=== PATIENT | male | born 1955 | race Caucasian/White ===

== ENCOUNTER → 2017-12-31 | Outpatient (CLI) | payer OTHER ==
[~2017-12-31] MED LIST: ALLOPURINOL300 MG PO; AZO CRANBERRY1 EACH PO; FENOFIBRATE145 MG PO; GLYCERIN1 EAC1 PR; METFORMIN HCL500 M2 PO; OXYBUTYNIN CHLOR5 MG PO; TYLENOL WITH C1 EACH PO; ZETIA10 MG PO
--- NOTE | 2017-12-31 15:24 | Diagnostic Imaging Report ---
Exam: Abdominal radiograph History: Calculus Comparison: None. Findings: Nonobstructive bowel gas pattern. 3 mm left renal calculus. Right renal shadow unremarkable. Impression: 3 mm left renal calculus Signed by: Dr. Flo Dyer M.D. on 12/31/2017 3:21 PM
== END ==
LOC: RAD 14:19
PROVIDERS: ATTEND Urology
DX: N20.0 Calculus of kidney (principal)
CPT/HCPCS: 74018

== ENCOUNTER → 2018-05-20 | Outpatient (CLI) | payer OTHER ==
--- NOTE | 2018-05-20 17:49 | Diagnostic Imaging Report ---
EXAM: Complete Abdominal Ultrasound INDICATION: ^CYST OF KIDNEY/INCOMPETE EMPTYING/BLADDER CA COMPARISON: CT abdomen and pelvis 07/08/2016 TECHNIQUE: Transverse and longitudinal images of the upper abdomen were obtained. FINDINGS: Liver: Size: 17.7 cm in the right midclavicular line, enlarged Appearance: Increased echogenicity, smooth contour Mass: No focal masses Spleen: Size: 12.4 cm in length, borderline enlarged Echogenicity: Normal Mass: No focal masses Gallbladder: Stones/Sludge: 0.4 and 0.5 cm echogenic nonshadowing nonmobile foci are noted in the gallbladder wall, consistent with small polyps. No echogenic stones or sludge. Wall: 0.2 cm Appearance: No wall thickening, pericholecystic fluid or hydrops. Sonographic Bautista's Sign: Negative Bile Ducts: Intrahepatic Ducts: No dilatation Extrahepatic Ducts: Common bile duct measures 0.5 cm, no dilatation Pancreas: Visualized portions of the neck and proximal body are unremarkable. Kidneys: See renal ultrasound performed same day for further detail Vessels: Aorta: Visualized portions are normal Inferior Vena Cava: Visualized portions are normal Main Portal Vein: 1.3 cm, normal size with hepatopetal flow. Free Fluid: No ascites or pleural effusion IMPRESSION: 1. Hepatomegaly with diffuse fatty infiltration. No focal lesions. 2. Borderline hepatomegaly. 3. Subcentimeter gallbladder polyps. Recommend follow-up right upper quadrant ultrasound in 6-12 months to document stability. 4. Please refer to renal ultrasound from same date for description of renal findings. Signed by: Dr. Darnell Adams M.D. on 05/20/2018 5:46 PM
--- NOTE | 2018-05-20 17:53 | Diagnostic Imaging Report ---
EXAM: Renal Ultrasound INDICATION: ^[id number] ^1523 ^CYST OF KIDNEY/INCOMPETE EMPTYING/BLADDER CA COMPARISON: CT abdomen and pelvis 07/08/2016 TECHNIQUE: Transverse and longitudinal images of the kidneys and bladder were obtained. FINDINGS: Right Kidney: Size: 13.7 cm, right renal cortex 2.1 cm. Appearance: Normal echogenicity. Collecting system: No hydronephrosis Stones: None Cyst/Mass: None Left Kidney: Size: 9.7 cm, left renal cortex 1.7 cm. Appearance: Normal echogenicity. Collecting system: No hydronephrosis Stones: 0.5 cm echogenic focus in the left inferior pole, likely representing a small nonobstructing calculus. Cyst/Mass: 3.0 x 2.7 x 2.3 cm cystic, anechoic, partially exophytic cyst in the superior pole Bladder: Not well visualized and obscured by overlying gas. IMPRESSION: 1. Stable discrepancy in renal size, which may reflect right renal hypertrophy. No hydronephrosis or evidence of obstruction. 2. 0.5 cm nonobstructing left inferior pole renal calculus. 3. 3.0 cm simple cyst in the left superior pole Signed by: Dr. Darnell Adams M.D. on 05/20/2018 5:50 PM
== END ==
LOC: US 14:07
PROVIDERS: ATTEND Urology
DX: N28.1 Cyst of kidney, acquired (principal)
CPT/HCPCS: 76700; 76770

== ENCOUNTER 2019-06-02 13:07 | Emergency (ER) | payer OTHER, MEDICARE ==
[~2019-06-02] VITALS: Ht 190.5 cm; Wt 103.4 kg
--- OUTSIDE RECORDS SUMMARY | 2019-06-02 13:10 | XMS REPORT ---
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 Allergies, Adverse Reactions, Alerts This patient has no known allergies or adverse reactions. Medications This patient has no known medications. Results Test Description Test Time Test Comments Text Results Atomic Results Result Comments US RENAL RETROPERITONEAL COMP 2018-05-20 17:45:00 [place] [address] Patient Name: KEYUR REVELES MR #: [id number] : 1955 Age/Sex: 62/M Req #: [id number] Adm Physician: Ordered by: TIKI REEVES MD Report #: [id number] Location: US Room/Bed: Procedure: [id number] US/US RENAL RETROPERITONEAL COMP Exam Date: 05/20/18 Exam Time: 1523 REPORT STATUS: Signed EXAM: Renal Ultrasound INDICATION: [id number] CYST OF KIDNEY/INCOMPETE EMPTYING/BLADDER CA COMPARISON: CT abdomen and pelvis 07/08/2016 TECHNIQUE: Transverse and longitudinal images of the kidneys and bladder were obtained. FINDINGS: Right Kidney: Size: 13.7 cm, right renal cortex 2.1 cm. Appearance: Normal echogenicity. Collecting system: No hydronephrosis Stones: None Cyst/Mass: None Left Kidney: Size: 9.7 cm, left renal cortex 1.7 cm. Appearance: Normal echogenicity. Collecting system: No hydronephrosis Stones: 0.5 cm echogenic focus in the left inferior pole, likely representing a small nonobstructing calculus. Cyst/Mass: 3.0 x 2.7 x 2.3 cm cystic, anechoic, partially exophytic cyst in the superior pole Bladder: Not well visualized and obscured by overlying gas. IMPRESSION: 1. Stable discrepancy in renal size, which may reflect right renal hypertrophy. No hydronephrosis or evidence of obstruction. 2. 0.5 cm nonobstructing left inferior pole renal calculus. 3. 3.0 cm simple cyst in the left superior pole Signed by: Dr. Anam Adams M.D. on 05/20/2018 5:50 PM Dictated By: ANAM ADAMS MD 49 Transcribed By: VIJI on 05/20/181749 COPY TO: TIKI REEVES MD US ABDOMEN COMPLETE 2018-05-20 17:12:00 [place] [address] Patient Name: KEYUR REVELES MR #: [id number] : 1955 Age/Sex: 62/M Req #: [id number] Adm Physician: Ordered by: TIKI REEVES MD Report #: [id number] Location: Room/Bed: Procedure: [id number] US/US ABDOMEN COMPLETE Exam Date: 05/20/18 Exam Time: 1549 REPORT STATUS: Signed EXAM: Complete Abdominal Ultrasound INDICATION: CYST OF KIDNEY/INCOMPETE EMPTYING/BLADDER CA COMPARISON: CT abdomen and pelvis 07/08/2016 TECHNIQUE: Transverse and longitudinal images of the upper abdomen were obtained. FINDINGS: Liver: Size: 17.7 cm in the right midclavicular line, enlarged Appearance: Increased echogenicity, smooth contour Mass: No focal masses Spleen: Size: 12.4 cm in length, borderline enlarged Echogenicity: Normal Mass: No focal masses Gallbladder: Stones/Sludge: 0.4 and 0.5 cm echogenic nonshadowing nonmobile foci are noted in the gallbladder wall, consistent with small polyps. No echogenic stones or sludge. Wall: 0.2 cm Appearance: No wall thickening, pericholecystic fluid or hydrops. Sonographic Bautista's Sign: Negative Bile Ducts: Intrahepatic Ducts: No dilatation Extrahepatic Ducts: Common bile duct measures 0.5 cm, no dilatation Pancreas: Visualized portions of the neck and proximal body are unremarkable. Kidneys: See renal ultrasound performed same day for further detail Vessels: Aorta: Visualized portions are normal Inferior Vena Cava: Visualized portions are normal Main Portal Vein: 1.3 cm, normal size with hepatopetal flow. Free Fluid: No ascites or pleural effusion IMPRESSION: 1. Hepatomegaly with diffuse fatty infiltration. No focal lesions. 2. Borderline hepatomegaly. 3. Subcentimeter gallbladder polyps. Recommend follow-up right upper quadrant ultrasound in 6-12 months to document stability. 4. Please refer to renal ultrasound from same date for description of renal findings. Signed by: Dr. Anam Adams M.D. on 05/20/2018 5:46 PM Dictated By: ANAM ADAMS MD 45 Transcribed By: VIJI on 05/20/181745 COPY TO: TIKI REEVES MD ABDOMEN-1VIEW (KUB) 2017-12-31 15:19:00 [place] [address] Patient Name: KEYUR REVELES MR #: [id number] : 1955 Age/Sex: 62/M Req #: [id number] Adm Physician: Ordered by: TIKI REEVES MD Report #: [id number] Location: [facility] Room/Bed: Procedure: [id number] DX/ABDOMEN-1VIEW (KUB) Exam Date: Exam Time: REPORT STATUS: Signed Exam: Abdominal radiograph History: Calculus Comparison: None. Findings: Nonobstructive bowel gas pattern. 3 mm left renal calculus. Right renal shadow unremarkable. Impression: 3 mm left renal calculus Signed by: Dr. Ling Arthur M.D. on 12/31/2017 3:21 PM Dictated By: LING ARTHUR MD 1521 Transcribed By: VIJI on 12/31/17 1521 COPY TO: TIIK REEVES MD
--- NOTE | 2019-06-02 14:35 | NUR ---
PATIENT STATED THAT HE RECEIVED A CALL FROM [facility] STATING THAT HIS COVID-19 TEST WAS NEGATIVE
[2019-06-02 14:43] LABS: CLARITY,URINE SL CLOUDY (CLEAR); COLOR,URINE YELLOW (YELLOW); LEUKOCYTE ESTERASE ,URINE 1+ (NEGATIVE); NITRITE,URINE NEGATIVE (NEGATIVE); PROTEIN,URINE DIPSTICK 2+ (NEGATIVE)
[2019-06-02 14:44] LABS: BILIRUBIN,URINE SMALL (NEGATIVE); KETONES,URINE NEGATIVE (NEGATIVE); URINE UROBILINOGEN 2 mg/dL (0.2 - 1)
[2019-06-02 14:51] LABS: RBC,URINE 0-5 /HPF (0-5); WBC,URINE (MAN) 21-50 /HPF (0-5)
[2019-06-02 14:52] LABS: EPITHELIAL CELLS,URINE RARE /LPF; RENAL EPITHELIAL CELLS,URINE RARE; TRANSITIONAL EPI CELLS,URINE RARE
[2019-06-02 16:42] VITALS: BP 157/92
== END 2019-06-02 16:45 | disposition home or self-care (01) ==
LOC: ER 13:07
DX: R30.0 Dysuria (principal); N30.91 Cystitis, unspecified with hematuria
CPT/HCPCS: 81001; 87086; 87186; 99283